=== PATIENT | male | born 1990 | race Caucasian/White ===

== ENCOUNTER 2017-05-02 13:34 | Inpatient (IN) | payer BC, OTHER ==
--- NOTE | 2017-05-02 13:44 | EDM.PDOC ---
ED HPI GENERAL MEDICAL PROBLEM - General Stated Complaint: SICK Time Seen by Provider: 05/02/17 13:38 Source of Information: Reports: Patient History Limitations: Reports: No Limitations - History of Present Illness INITIAL COMMENTS - FREE TEXT/NARRATIVE: 26 yo male presents with n/v/d since 4 am . states that he had some jerky yesterday with his father in law and now both have n/v/d. Denies other complaints. States that he has been having chills but fever is "subjective". Currently low grade fever upon arrival. C/o generalized aches to abdomen. Unable to tolerate liquids or solids. Onset: Today Onset Time: 04:00 Duration: Constant Location: Reports: Abdomen Quality: Reports: Ache Severity: Mild Improves with: Reports: None Worsens with: Reports: Eating Associated Symptoms: Reports: Loss of Appetite, Malaise, Nausea/Vomiting 0 Pain Score (Numeric/FACES): 0 - Related Data Allergies Allergy/AdvReac Type Severity Reaction Status Date / Time No Known Allergies Allergy Verified 10/14/13 03:58 Past Medical History - Past Health History Medical/Surgical History: Denies Medical/Surgical History Social & Family History - Tobacco Use Second Hand Smoke Exposure: No ED ROS GENERAL - Review of Systems Review Of Systems: ROS reveals no pertinent complaints other than HPI. ED EXAM, GI/ABD - Physical Exam Exam: See Below Exam Limited By: No Limitations General Appearance: Alert, WD/WN, No Apparent Distress Eyes: Bilateral: Normal Appearance, EOMI Throat/Mouth: Normal Inspection, Normal Lips, Normal Teeth, Normal Gums, Normal Oropharynx, Normal Voice, No Airway Compromise Head: Atraumatic, Normocephalic Neck: Normal Inspection, Supple, Non-Tender, Full Range of Motion Respiratory/Chest: No Respiratory Distress, Lungs Clear, Normal Breath Sounds, No Accessory Muscle Use, Chest Non-Tender Cardiovascular: Normal Peripheral Pulses, Regular Rate, Rhythm, No Edema, No Gallop, No JVD, No Murmur, No Rub GI/Abdominal Exam: Normal Bowel Sounds, Soft, No Organomegaly, No Distention, No Abnormal Bruit, No Mass, Pelvis Stable, Tender (mild diffusely) Neurological: Alert, Oriented, Normal Cognition, Normal Gait Skin Exam: Warm, Dry, Intact, Normal Color, No Rash Lymphatic: No Adenopathy Course - Vital Signs Last Recorded V/S: Last Vital Signs Temp 100.4 F 05/02/17 13:35 Pulse 97 05/02/17 13:35 Resp 16 05/02/17 13:35 BP 151/70 H 05/02/17 13:35 Pulse Ox 97 05/02/17 13:35 - Orders/Labs/Meds Orders: Active Orders 24 hr Category Date Time Status Oral Fluid Challenge [RC] ASDIRECTED Care 05/02/17 17:07 Active CULTURE BLOOD [BC] Stat Lab 05/02/17 17:22 Received CULTURE BLOOD [BC] Stat Lab 05/02/17 17:27 Received UA W/MICROSCOPIC [URIN] Stat Lab 05/02/17 13:48 Uncollected Blood Culture x2 Reflex Set [OM.PC] Stat Oth 05/02/17 16:59 Ordered Labs: Laboratory Tests 05/02/17 05/02/17 05/02/17 Range/Units 13:51 13:51 13:51 WBC 16.0 H (5.0-10.0) 10^3/uL RBC 4.95 (4.6-6.2) 10^6/uL Hgb 14.2 (14.0-18.0) g/dL Hct 40.2 (40.0-54.0) % MCV 81.2 (80-100) fL MCH 28.7 (27.0-34.0) pg MCHC 35.3 H (33.0-35.0) g/dL Plt Count 163 (150-450) 10^3/uL Neut % (Auto) 89.8 H (42.2-75.2) % Lymph % (Auto) 4.3 L (20.5-50.1) % [place] % (Auto) 5.6 (2-8) % Eos % (Auto) 0.1 L (1.0-3.0) % Baso % (Auto) 0.2 (0.0-1.0) % Sodium 139 (135-145) mmol/L Potassium 3.6 (3.6-5.0) mmol/L Chloride 103 (101-111) mmol/L Carbon Dioxide 23.0 (21.0-31.0) mmol/L Anion Gap 16.6 BUN 12 (7-18) mg/dL Creatinine 1.1 (0.6-1.3) mg/dL Est Cr Clr Drug Dosing TNP Estimated GFR (MDRD) > 60 BUN/Creatinine Ratio 10.90 Glucose 105 (74-105) mg/dL Lactic Acid 2.4 H (0.5-2.2) mmol/L Calcium 9.2 (8.4-10.2) mg/dl Total Bilirubin 1.2 H (0.2-1.0) mg/dL AST 36 (10-42) IU/L ALT 38 (10-60) IU/L Alkaline Phosphatase 71 (42-121) IU/L Total Protein 8.0 (6.7-8.2) g/dl Albumin 4.5 (3.2-5.5) g/dl Globulin 3.5 Albumin/Globulin Ratio 1.29 Amylase 71 (28-100) U/L Lipase 31 (22-51) U/L // Range/Units 17:22 WBC (5.0-10.0) 10^3/uL RBC (4.6-6.2) 10^6/uL Hgb (14.0-18.0) g/dL Hct (40.0-54.0) % MCV (80-100) fL MCH (27.0-34.0) pg MCHC (33.0-35.0) g/dL Plt Count (150-450) 10^3/uL Neut % (Auto) (42.2-75.2) % Lymph % (Auto) (20.5-50.1) % [place] % (Auto) (2-8) % Eos % (Auto) (1.0-3.0) % Baso % (Auto) (0.0-1.0) % Sodium (135-145) mmol/L Potassium (3.6-5.0) mmol/L Chloride (101-111) mmol/L Carbon Dioxide (21.0-31.0) mmol/L Anion Gap BUN (7-18) mg/dL Creatinine (0.6-1.3) mg/dL Est Cr Clr Drug Dosing Estimated GFR (MDRD) BUN/Creatinine Ratio Glucose (74-105) mg/dL Lactic Acid 2.1 (0.5-2.2) mmol/L Calcium (8.4-10.2) mg/dl Total Bilirubin (0.2-1.0) mg/dL AST (10-42) IU/L ALT (10-60) IU/L Alkaline Phosphatase (42-121) IU/L Total Protein (6.7-8.2) g/dl Albumin (3.2-5.5) g/dl Globulin Albumin/Globulin Ratio Amylase (28-100) U/L Lipase (22-51) U/L Meds: Medications Discontinued Medications Generic Name Dose Route Start Last Admin Trade Name Freq PRN Reason Stop Dose Admin Ciprofloxacin 500 mg 05/02/17 15:47 05/02/17 16:15 Ciprofloxacin Hcl PO 05/02/17 15:48 500 mg ONETIME ONE Administration Sodium Chloride 1,000 mls @ 999 mls/hr 05/02/17 13:50 05/02/17 14:12 Normal Saline IV 05/02/17 14:50 999 mls/hr .BOLUS ONE Administration Sodium Chloride 1,000 mls @ 999 mls/hr 05/02/17 14:25 05/02/17 15:24 Normal Saline IV 05/02/17 15:25 999 mls/hr .BOLUS ONE Administration Metronidazole 500 mg/ Premix 100 mls @ 100 mls/hr 05/02/17 15:47 05/02/17 16: 17 IV 05/02/17 16:46 100 mls/hr ONETIME ONE Administration Iopamidol 75 ml 05/02/17 14:19 05/02/17 15:06 Isovue-300 (61%) IVPUSH 05/02/17 14:20 75 ml ONETIME ONE Administration Ketorolac Tromethamine 30 mg 05/02/17 15:53 05/02/17 16:14 Toradol IVPUSH 05/02/17 15:54 30 mg ONETIME ONE Administration Ondansetron HCl 4 mg 05/02/17 13:50 05/02/17 14:13 Zofran IV 05/02/17 13:51 4 mg ONETIME ONE Administration Ondansetron HCl 4 mg 05/02/17 14:32 05/02/17 14:39 Zofran IV 05/02/17 14:33 4 mg ONETIME ONE Administration - Re-Assessments/Exams Free Text/Narrative Re-Assessment/Exam: 05/02/17 18:[address] Lundberg who is here to evaluate patient Departure - Departure Time of Disposition: 18:35 Disposition: Refer to Observation Condition: Good Clinical Impression: Gastroenteritis - Discharge Information Forms: ED Department Discharge - My Orders Last 24 Hours: My Active Orders 05/02/17 13:48 UA W/MICROSCOPIC [URIN] Stat 05/02/17 16:59 Blood Culture x2 Reflex Set [OM.PC] Stat 05/02/17 17:07 Oral Fluid Challenge [RC] ASDIRECTED 05/02/17 17:22 CULTURE BLOOD [BC] Stat 05/02/17 17:27 CULTURE BLOOD [BC] Stat - Assessment/Plan Last 24 Hours: My Active Orders 05/02/17 13:48 UA W/MICROSCOPIC [URIN] Stat 05/02/17 16:59 Blood Culture x2 Reflex Set [OM.PC] Stat 05/02/17 17:07 Oral Fluid Challenge [RC] ASDIRECTED 05/02/17 17:22 CULTURE BLOOD [BC] Stat 05/02/17 17:27 CULTURE BLOOD [BC] Stat
[2017-05-02] MEDS ORDERED: Ondansetron 4 MG/2 ML SDV IV ONE ×2 (13:50→14:32)
[2017-05-02] MEDS ORDERED: Sodium Chloride 0.9% 1,000 ML IV ONE ×2 (13:50→14:25)
[2017-05-02] MEDS ORDERED: Iopamidol 612 MG/ML 75 ML Bottle IVPUSH ONE (14:19)
[2017-05-02 14:27] LABS: CHLORIDE,CL 103 mmol/L (101-111); SODIUM,NA 139 mmol/L (135-145)
[2017-05-02] MEDS ORDERED: Ciprofloxacin 500 MG Tab PO ONE (15:47)
[2017-05-02] MEDS ORDERED: metroNIDAZOLE/Normal Saline 500 MG in Premix Bag 100 BAG IV ONE (15:47)
[2017-05-02] MEDS ORDERED: Ketorolac 30 MG/ML SDV IVPUSH ONE (15:53)
[2017-05-02] MEDS ORDERED: Ondansetron 4 MG Tab.DIS PO PRN (18:46)
[2017-05-02] MEDS ORDERED: Morphine 2 MG/ML Syringe IVPUSH PRN (18:46)
[2017-05-02] MEDS ORDERED: Zolpidem 5 MG Tab PO PRN (18:46)
[2017-05-02] MEDS ORDERED: Promethazine 25 MG/ML SDV IM PRN (18:46)
[2017-05-02] MEDS ORDERED: Sodium Chloride 0.9% 10 ML Syringe FLUSH PRN (18:46)
[2017-05-02] MEDS ORDERED: Metoclopramide 10 MG/2 ML SDV IVPUSH PRN (18:49)
--- NOTE | 2017-05-02 19:12 | PCM.HP ---
H&P History of Present Illness - General Date of Service: 05/02/17 Admit Problem/Dx: Nausea vomiting diarrhea Source of Information: EMS - History of Present Illness Initial Comments - Free Text/Narative: The patient is a 26 -year-old generally healthy gentleman with a history of prior bowel resection for volvulus. 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 The patient developed sudden onset of nausea, bilious vomiting, watery diarrhea. This started around 4 AM on 02 May. The patient is unable to keep food and fluid down, and a small amount of liquid makes the vomiting worse. There is associated fever, chills. Physical abdominal bloating but no significant distention noted by his . Prior to the development of the symptoms he ate homemade jerky. Appears that his [id number] who ate the same food was also complaining of diarrhea but he quickly improved. The patient came into the emergency room, was noted to have leukocytosis, fever. Consent for sepsis. Lactic acid was elevated but improved after IV fluid rehydration. CT was done in the emergency room that described retropancreatic inflammatory changes. The patient received a dose of ciprofloxacin and Flagyl in the emergency room along with IV fluids. 0 Pain Score (Numeric/FACES): 0 - Related Data Allergies/Adverse Reactions: Allergies Allergy/AdvReac Type Severity Reaction Status Date / Time No Known Allergies Allergy Verified 10/14/13 03:58 Past Medical History - Past Health History Medical/Surgical History: Denies Medical/Surgical History - Past Surgical History HEENT Surgical History: Reports: Adenoidectomy, Tonsillectomy GI Surgical History: Reports: Colon Other GI Surgeries/Procedures: Colon resection Social & Family History - Family History Family Medical History: Noncontributory - Tobacco Use Smoking Status *Q: Never Smoker Second Hand Smoke Exposure: No - Caffeine Use Caffeine Use: Reports: None - Recreational Drug Use Recreational Drug Use: No H&P Review of Systems - Review of Systems: Review Of Systems: See Below General: Reports: Fever, Chills, Weakness, Decreased Appetite Pulmonary: Denies: Shortness of Breath Cardiovascular: Denies: Chest Pain Gastrointestinal: Reports: Diarrhea, Nausea, Vomiting. Denies: Abdominal Pain, Hematemesis, Hematochezia, Melena Genitourinary: Denies: Dysuria Psychiatric: Denies: Confusion Exam - Exam Exam: See Below - Vital Signs Vital Signs: Last Vital Signs Temp 37.7 C 05/02/17 18:43 Pulse 92 05/02/17 18:43 Resp 16 05/02/17 18:43 BP 120/64 05/02/17 18:43 Pulse Ox 98 05/02/17 18:43 Weight: 95.254 kg - Exam General: Alert, Oriented Neck: Supple Lungs: Clear to Auscultation, Normal Respiratory Effort Cardiovascular: Regular Rate, Regular Rhythm GI/Abdominal Exam: Normal Bowel Sounds, Soft, Non-Tender, No Organomegaly, No Distention. No: Rigid, Rebound, Tender Back Exam: Normal Inspection Extremities: No Pedal Edema Skin: Warm Neuro Extensive - Mental Status: Alert, Oriented x3, Normal Mood/Affect - Patient Data Result Diagrams: 05/02/17 13:51 05/02/17 13:51 *Q Meaningful Use (ADM) - VTE *Q VTE Criteria *Q: - Stroke *Q Stroke Criteria *Q: - AMI *Q AMI Criteria *Q: - Problem List (1) Nausea and vomiting in adult SNOMED Code(s): 48777914 ICD Code: R11.2 - NAUSEA WITH VOMITING, UNSPECIFIED Status: Acute Current Visit: Yes (2) Gastroenteritis SNOMED Code(s): 88137815 ICD Code: K52.9 - NONINFECTIVE GASTROENTERITIS AND COLITIS, UNSPECIFIED Status: Acute Current Visit: Yes (3) Sepsis SNOMED Code(s): 68945800 ICD Code: A41.9 - SEPSIS, UNSPECIFIED ORGANISM Status: Acute Current Visit: Yes Problem List Initiated/Reviewed/Updated: Yes Orders Last 24hrs: Medication Orders Acetaminophen (Tylenol) 650 mg PO Q4H PRN PRN Reason: Pain (Mild 1-3)/fever Heparin Sodium (Porcine) (Heparin Sodium) 5,000 units SUBCUT Q8HR [facility] Potassium Chloride/Sodium Chloride (Normal Saline With 20 Meq Kcl) 1,000 mls @ 150 mls/hr IV ASDIRECTED [facility] Metronidazole 500 mg/ Premix 100 mls @ 100 mls/hr IV Q8H [facility] Metoclopramide HCl (Reglan) 10 mg IVPUSH .Q6 PRN PRN Reason: Nausea Morphine Sulfate (Morphine) 2 mg IVPUSH Q2H PRN PRN Reason: Pain (severe 7-10) Ondansetron HCl (Zofran Odt) 4 mg PO Q6H PRN PRN Reason: nausea, able to take PO Ondansetron HCl (Zofran) 4 mg IVPUSH Q6H PRN PRN Reason: Nausea/Vomiting Pantoprazole Sodium (Protonix Iv) 40 mg IVPUSH Q12H [facility] Promethazine HCl (Phenergan) 12.5 mg IM Q6H PRN PRN Reason: Nausea/Vomiting Sodium Chloride (Saline Flush) 10 ml FLUSH ASDIRECTED PRN PRN Reason: Keep Vein Open Zolpidem Tartrate (Ambien) 5 mg PO BEDTIME PRN PRN Reason: Sleep Assessment/Plan Comment:: The patient developed sudden onset of nausea, bilious vomiting, watery diarrhea. The patient is unable to keep food and fluid down, and a small amount of liquid makes the vomiting worse. There is associated fever, chills. Physical abdominal bloating but no significant distention noted by his . Prior to the development of the symptoms he ate homemade jerky. Appears that his [id number] who ate the same food was also complaining of diarrhea but he quickly improved. The patient came into the emergency room, was noted to have leukocytosis, fever. Concern for sepsis. Lactic acid was elevated but improved after IV fluid rehydration. CT was done in the emergency room that described retropancreatic inflammatory changes. The patient received a dose of ciprofloxacin and Flagyl in the emergency room along with IV fluids. #1 nausea, vomiting, diarrhea Differential diagnosis is wide. This might be food poisoning, viral infection. Possible C. difficile colitis due to healthcare exposure. Will repeat liver enzymes in the morning, lipase, electrolytes. Check stool for C. difficile For now treat the patient symptomatically with antiemetics, IV hydration. Clear liquid diet and will advance as tolerated. #2 sepsis with leukocytosis, fever, gastroenteritis Will treat with IV fluids Continue Flagyl #3 DVT prophylaxis will be with subcutaneous heparin
[2017-05-02] MEDS: Pantoprazole 40 MG Vial IVPUSH SCH (19:40)
[2017-05-02] MEDS: NS + KCl 20mEq/L 1,000 ML IV SCH (19:43)
[2017-05-02] MEDS: Ondansetron 4 MG/2 ML SDV IVPUSH PRN (19:52)
[2017-05-02] MEDS: Acetaminophen 325 MG Tab PO PRN ×2 (19:59→23:50)
[2017-05-02] MEDS: Heparin Sodium 5,000 Units/ML Vial SUBCUT SCH (22:32)
[2017-05-02] MEDS: metroNIDAZOLE/Normal Saline 500 MG in Premix Bag 100 BAG IV SCH (22:33)
[2017-05-03] MEDS: Ondansetron 4 MG/2 ML SDV IVPUSH PRN (03:02)
[2017-05-03] MEDS: NS + KCl 20mEq/L 1,000 ML IV SCH (03:51)
[2017-05-03] MEDS: Heparin Sodium 5,000 Units/ML Vial SUBCUT SCH ×2 (05:49→15:34)
[2017-05-03] MEDS: Pantoprazole 40 MG Vial IVPUSH SCH (06:24)
[2017-05-03] MEDS: metroNIDAZOLE/Normal Saline 500 MG in Premix Bag 100 BAG IV SCH ×2 (06:27→14:22)
[2017-05-03 06:54] LABS: CHLORIDE,CL 105 mmol/L (101-111); SODIUM,NA 137 mmol/L (135-145)
[2017-05-03] MEDS: Acetaminophen 325 MG Tab PO PRN ×2 (09:28→12:42)
[2017-05-03] MEDS ORDERED: Magnesium Sulfate/D5W 2 GM in Premix Bag 1 BAG IV ONE (09:29)
--- NOTE | 2017-05-03 09:45 | PCM.PN ---
- General Info Date of Service: 05/03/17 Admission Dx/Problem (Free Text): Nausea vomiting diarrhea Subjective Update: Overnight had high fevers. There is still nausea but much less associated vomiting. Less diarrhea. No associated abdominal pain Duration of illness is 24 hours Appears improving Continues to have diffuse muscle aches. No neurological symptoms Functional Status: Reports: Tolerating Diet (Was able to take clear liquid diet) , Urinating - Review of Systems General: Reports: Fever, Weakness, Malaise, Chills Pulmonary: Denies: Shortness of Breath Cardiovascular: Denies: Chest Pain Gastrointestinal: Reports: Diarrhea, Nausea, Vomiting. Denies: Abdominal Pain Neurological: Denies: Confusion - Patient Data Vitals - Most Recent: Last Vital Signs Temp 38.9 C H 05/03/17 03:00 Pulse 93 05/03/17 03:00 Resp 20 05/03/17 03:00 BP 127/73 05/03/17 03:00 Pulse Ox 97 05/03/17 03:00 Weight - Most Recent: 95.254 kg I&O - Last 24 Hours: Intake & Output 05/02/17 05/03/17 05/03/17 22:59 06:59 14:59 Intake Total 50 1905 Output Total 500 700 Balance -450 1205 Lab Results Last 24 Hours: Laboratory Results - last 24 hr 05/03/17 05/03/17 Range/Units 06:20 06:20 WBC 12.9 H (5.0-10.0) 10^3/uL RBC 4.35 L (4.6-6.2) 10^6/uL Hgb 12.4 L (14.0-18.0) g/dL Hct 36.3 L (40.0-54.0) % MCV 83.4 (80-100) fL MCH 28.5 (27.0-34.0) pg MCHC 34.2 (33.0-35.0) g/dL Plt Count 135 L (150-450) 10^3/uL Neut % (Auto) 85.8 H (42.2-75.2) % Lymph % (Auto) 7.4 L (20.5-50.1) % [place] % (Auto) 6.6 (2-8) % Eos % (Auto) 0.1 L (1.0-3.0) % Baso % (Auto) 0.1 (0.0-1.0) % Sodium 137 (135-145) mmol/L Potassium 3.4 L (3.6-5.0) mmol/L Chloride 105 (101-111) mmol/L Carbon Dioxide 22.0 (21.0-31.0) mmol/L Anion Gap 13.4 BUN 14 (7-18) mg/dL Creatinine 1.1 (0.6-1.3) mg/dL Est Cr Clr Drug Dosing 99.98 mL/min Estimated GFR (MDRD) > 60 Glucose 126 H (74-105) mg/dL Calcium 8.1 L (8.4-10.2) mg/dl Phosphorus 1.2 L (2.5-4.6) mg/dL Magnesium 1.3 L (1.8-2.5) mg/dL Total Bilirubin 1.4 H (0.2-1.0) mg/dL Direct Bilirubin 0.3 H (0.0-0.2) mg/dL Indirect Bilirubin 1.1 AST 31 (10-42) IU/L ALT 29 (10-60) IU/L Alkaline Phosphatase 54 (42-121) IU/L Total Protein 6.6 L (6.7-8.2) g/dl Albumin 3.7 (3.2-5.5) g/dl Globulin 2.9 Albumin/Globulin Ratio 1.28 Lipase 35 (22-51) U/L Med Orders - Current: Current Medications Acetaminophen (Tylenol) 650 mg PO Q4H PRN PRN Reason: Pain (Mild 1-3)/fever Last Admin: 05/02/17 23:50 Dose: 650 mg Heparin Sodium (Porcine) (Heparin Sodium) 5,000 units SUBCUT Q8HR [facility] Last Admin: 05/03/17 05:49 Dose: 5,000 units Potassium Chloride/Sodium Chloride (Normal Saline With 20 Meq Kcl) 1,000 mls @ 150 mls/hr IV ASDIRECTED [facility] Last Admin: 05/03/17 03:51 Dose: 150 mls/hr Metronidazole 500 mg/ Premix 100 mls @ 100 mls/hr IV Q8H [facility] Last Admin: 05/03/17 06:27 Dose: 100 mls/hr Magnesium Sulfate/Dextrose 2 (gm/ Premix) 200 mls @ 100 mls/hr IV ONETIME ONE Stop: 05/03/17 11:28 Ketorolac Tromethamine (Toradol) 30 mg IVPUSH Q6H PRN PRN Reason: fever, pain Stop: 05/08/17 09:30 Metoclopramide HCl (Reglan) 10 mg IVPUSH .Q6 PRN PRN Reason: Nausea Last Admin: 05/03/17 03:59 Dose: 10 mg Morphine Sulfate (Morphine) 2 mg IVPUSH Q2H PRN PRN Reason: Pain (severe 7-10) Last Admin: 05/03/17 03:11 Dose: 2 mg Ondansetron HCl (Zofran Odt) 4 mg PO Q6H PRN PRN Reason: nausea, able to take PO Ondansetron HCl (Zofran) 4 mg IVPUSH Q6H PRN PRN Reason: Nausea/Vomiting Last Admin: 05/03/17 03:02 Dose: 4 mg Pantoprazole Sodium (Protonix Iv) 40 mg IVPUSH Q12H [facility] Last Admin: 05/03/17 06:24 Dose: 40 mg Promethazine HCl (Phenergan) 12.5 mg IM Q6H PRN PRN Reason: Nausea/Vomiting Sodium Chloride (Saline Flush) 10 ml FLUSH ASDIRECTED PRN PRN Reason: Keep Vein Open Sodium Phosphate (Neutra-Phos) 250 mg PO QID [facility] Stop: 05/03/17 21:01 Zolpidem Tartrate (Ambien) 5 mg PO BEDTIME PRN PRN Reason: Sleep Discontinued Medications Ciprofloxacin (Ciprofloxacin Hcl) 500 mg PO ONETIME ONE Stop: 05/02/17 15:48 Last Admin: 05/02/17 16:15 Dose: 500 mg Sodium Chloride (Normal Saline) 1,000 mls @ 999 mls/hr IV .BOLUS ONE Stop: 05/02/17 14:50 Last Admin: 05/02/17 14:12 Dose: 999 mls/hr Sodium Chloride (Normal Saline) 1,000 mls @ 999 mls/hr IV .BOLUS ONE Stop: 05/02/17 15:25 Last Admin: 05/02/17 15:24 Dose: 999 mls/hr Metronidazole 500 mg/ Premix 100 mls @ 100 mls/hr IV ONETIME ONE Stop: 05/02/17 16:46 Last Admin: 05/02/17 16:17 Dose: 100 mls/hr Iopamidol (Isovue-300 (61%)) 75 ml IVPUSH ONETIME ONE Stop: 05/02/17 14:20 Last Admin: 05/02/17 15:06 Dose: 75 ml Ketorolac Tromethamine (Toradol) 30 mg IVPUSH ONETIME ONE Stop: 05/02/17 15:54 Last Admin: 05/02/17 16:14 Dose: 30 mg Ondansetron HCl (Zofran) 4 mg IV ONETIME ONE Stop: 05/02/17 13:51 Last Admin: 05/02/17 14:13 Dose: 4 mg Ondansetron HCl (Zofran) 4 mg IV ONETIME ONE Stop: 05/02/17 14:33 Last Admin: 05/02/17 14:39 Dose: 4 mg - Exam General: Alert, Oriented Neck: Supple Lungs: Clear to Auscultation, Normal Respiratory Effort Cardiovascular: Regular Rate, Regular Rhythm, Tachycardia GI/Abdominal Exam: Normal Bowel Sounds, Soft, Non-Tender Extremities: No Pedal Edema - Problem List & Annotations (1) Nausea and vomiting in adult SNOMED Code(s): 93999935 Code(s): R11.2 - NAUSEA WITH VOMITING, UNSPECIFIED Status: Acute Current Visit: Yes (2) Gastroenteritis SNOMED Code(s): 95175623 Code(s): K52.9 - NONINFECTIVE GASTROENTERITIS AND COLITIS, UNSPECIFIED Status: Acute Current Visit: Yes (3) Sepsis SNOMED Code(s): 90137125 Code(s): A41.9 - SEPSIS, UNSPECIFIED ORGANISM Status: Acute Current Visit : Yes - Problem List Review Problem List Initiated/Reviewed/Updated: Yes - My Orders Last 24 Hours: My Active Orders 05/03/17 09:27 Admission Status [Patient Status] [ADT] Routine 05/03/17 09:29 Magnesium Sulfate/D5W [Magnesium 1 GM in D5W 100 ML] 2 gm Premix Bag 1 bag IV ONETIME 05/03/17 09:30 Ketorolac [Toradol] 30 mg IVPUSH Q6H PRN Phosphorus #1 [Neutra-Phos] 250 mg PO QID - Plan Plan:: The patient developed sudden onset of nausea, bilious vomiting, watery diarrhea. The patient was unable to keep food and fluid down, and even a small amount of liquid was making the vomiting worse. There is associated fever, chills. #1 nausea, vomiting, diarrhea this is associated with high fever Differential diagnosis is wide. This might be food poisoning, viral infection. Possible C. difficile colitis due to healthcare exposure. Stable liver enzymes, lipase, Check stool for C. difficile We will replace potassium, magnesium, phosphorus. Recheck in the morning For now treat the patient symptomatically with antiemetics, IV hydration. Advance diet as tolerated. Use Toradol for fever and pain #2 sepsis with leukocytosis, fever, gastroenteritis Will treat with IV fluids Continue Flagyl #3 DVT prophylaxis will be with subcutaneous heparin
[2017-05-03] MEDS ORDERED: Potassium Chloride 10 MEQ Tab.ER PO ONE (09:46)
[2017-05-03] MEDS: Ketorolac 30 MG/ML SDV IVPUSH PRN ×2 (10:14→15:35)
[2017-05-03] MEDS: Phosphorus #1 250 MG Tab PO SCH ×3 (10:14→15:34)
[2017-05-03 11:33] VITALS: BP 109/55
--- NOTE | 2017-05-03 15:08 | PCM.DCSUM1 ---
Discharge Summary - Hospital Course Free Text/Narrative:: The patient is a 26-year-old gentleman who presented with nausea vomiting diarrhea The patient was noted to have high fever leukocytosis mildly elevated lactic acid. The patient workup included blood culture and C. difficile test from stool that is still pending. The patient was treated symptomatically with the IV fluids and antiemetics. He was started on ciprofloxacin and Flagyl. After the admission he continued to have high fever chills. Subsequently symptoms improved was able to keep food down, eat and drink. Had no further diarrhea Fever resolved He would like to be discharged The patient will be discharged now and will return if he has return of the symptoms. - Discharge Data Discharge Date: 05/03/17 Discharge Disposition: Home, Self-Care 01 Condition: Stable - Discharge Diagnosis/Problem(s) (1) Nausea and vomiting in adult SNOMED Code(s): 44961548 ICD Code: R11.2 - NAUSEA WITH VOMITING, UNSPECIFIED Status: Acute Current Visit: Yes (2) Gastroenteritis SNOMED Code(s): 39441225 ICD Code: K52.9 - NONINFECTIVE GASTROENTERITIS AND COLITIS, UNSPECIFIED Status: Acute Current Visit: Yes (3) Sepsis SNOMED Code(s): 77886696 ICD Code: A41.9 - SEPSIS, UNSPECIFIED ORGANISM Status: Acute Current Visit: Yes - Patient Instructions Diet: Usual Diet as Tolerated Activity: As Tolerated - Discharge Plan Prescriptions/Med Rec: Ketorolac [Toradol] 10 mg PO Q6H #10 tablet metroNIDAZOLE [Flagyl] 500 mg PO Q8H #15 tablet Ondansetron [Zofran ODT] 4 mg PO Q6H PRN #15 tab.dis PRN Reason: Nausea Pantoprazole Sodium [Protonix] 20 mg PO DAILY #15 tablet. Home Medications: Home Meds Ketorolac [Toradol] 10 mg PO Q6H #10 tablet 05/03/17 [Rx] Ondansetron [Zofran ODT] 4 mg PO Q6H PRN #15 tab.dis 05/03/17 [Rx] Pantoprazole Sodium [Protonix] 20 mg PO DAILY #15 tablet. 05/03/17 [Rx] metroNIDAZOLE [Flagyl] 500 mg PO Q8H #15 tablet 05/03/17 [Rx] - General Info Date of Service: 05/03/17 - Review of Systems General: Denies: Fever Pulmonary: Denies: Shortness of Breath Cardiovascular: Denies: Chest Pain Gastrointestinal: Denies: Abdominal Pain, Diarrhea, Nausea, Vomiting - Patient Data Vitals - Most Recent: Last Vital Signs Temp 35.9 C 05/03/17 11:00 Pulse 87 05/03/17 11:00 Resp 20 05/03/17 11:00 BP 109/55 L 05/03/17 11:00 Pulse Ox 97 05/03/17 11:00 Weight - Most Recent: 95.254 kg I&O - Last 24 hours: Intake & Output 05/03/17 05/03/17 05/03/17 06:59 14:59 22:59 Intake Total 200 Balance 200 Med Orders - Current: Current Medications Acetaminophen (Tylenol) 650 mg PO Q4H PRN PRN Reason: Pain (Mild 1-3)/fever Last Admin: 05/03/17 12:42 Dose: 650 mg Heparin Sodium (Porcine) (Heparin Sodium) 5,000 units SUBCUT Q8HR [facility] Last Admin: 05/03/17 05:49 Dose: 5,000 units Potassium Chloride/Sodium Chloride (Normal Saline With 20 Meq Kcl) 1,000 mls @ 150 mls/hr IV ASDIRECTED [facility] Last Admin: 05/03/17 03:51 Dose: 150 mls/hr Metronidazole 500 mg/ Premix 100 mls @ 100 mls/hr IV Q8H [facility] Last Admin: 05/03/17 14:22 Dose: 100 mls/hr Ketorolac Tromethamine (Toradol) 30 mg IVPUSH Q6H PRN PRN Reason: fever, pain Stop: 05/08/17 09:30 Last Admin: 05/03/17 10:14 Dose: 30 mg Metoclopramide HCl (Reglan) 10 mg IVPUSH .Q6 PRN PRN Reason: Nausea Last Admin: 05/03/17 03:59 Dose: 10 mg Morphine Sulfate (Morphine) 2 mg IVPUSH Q2H PRN PRN Reason: Pain (severe 7-10) Last Admin: 05/03/17 03:11 Dose: 2 mg Ondansetron HCl (Zofran Odt) 4 mg PO Q6H PRN PRN Reason: nausea, able to take PO Ondansetron HCl (Zofran) 4 mg IVPUSH Q6H PRN PRN Reason: Nausea/Vomiting Last Admin: 05/03/17 03:02 Dose: 4 mg Pantoprazole Sodium (Protonix Iv) 40 mg IVPUSH Q12H [facility] Last Admin: 05/03/17 06:24 Dose: 40 mg Promethazine HCl (Phenergan) 12.5 mg IM Q6H PRN PRN Reason: Nausea/Vomiting Sodium Chloride (Saline Flush) 10 ml FLUSH ASDIRECTED PRN PRN Reason: Keep Vein Open Sodium Phosphate (Neutra-Phos) 250 mg PO QID [facility] Stop: 05/03/17 21:01 Last Admin: 05/03/17 12:42 Dose: 250 mg Zolpidem Tartrate (Ambien) 5 mg PO BEDTIME PRN PRN Reason: Sleep Discontinued Medications Ciprofloxacin (Ciprofloxacin Hcl) 500 mg PO ONETIME ONE Stop: 05/02/17 15:48 Last Admin: 05/02/17 16:15 Dose: 500 mg Sodium Chloride (Normal Saline) 1,000 mls @ 999 mls/hr IV .BOLUS ONE Stop: 05/02/17 14:50 Last Admin: 05/02/17 14:12 Dose: 999 mls/hr Sodium Chloride (Normal Saline) 1,000 mls @ 999 mls/hr IV .BOLUS ONE Stop: 05/02/17 15:25 Last Admin: 05/02/17 15:24 Dose: 999 mls/hr Metronidazole 500 mg/ Premix 100 mls @ 100 mls/hr IV ONETIME ONE Stop: 05/02/17 16:46 Last Admin: 05/02/17 16:17 Dose: 100 mls/hr Magnesium Sulfate/Dextrose 2 (gm/ Premix) 200 mls @ 100 mls/hr IV ONETIME ONE Stop: 05/03/17 11:28 Last Admin: 05/03/17 10:13 Dose: 100 mls/hr Iopamidol (Isovue-300 (61%)) 75 ml IVPUSH ONETIME ONE Stop: 05/02/17 14:20 Last Admin: 05/02/17 15:06 Dose: 75 ml Ketorolac Tromethamine (Toradol) 30 mg IVPUSH ONETIME ONE Stop: 05/02/17 15:54 Last Admin: 05/02/17 16:14 Dose: 30 mg Ondansetron HCl (Zofran) 4 mg IV ONETIME ONE Stop: 05/02/17 13:51 Last Admin: 05/02/17 14:13 Dose: 4 mg Ondansetron HCl (Zofran) 4 mg IV ONETIME ONE Stop: 05/02/17 14:33 Last Admin: 05/02/17 14:39 Dose: 4 mg Potassium Chloride (Klor-Con 10) 20 meq PO ONETIME ONE Stop: 05/03/17 09:47 Last Admin: 05/03/17 10:14 Dose: 20 meq - Exam General: Reports: Alert, Oriented Neck: Reports: Supple Psy/Mental Status: Reports: Alert, Normal Affect, Normal Mood *Q Meaningful Use (DIS) - VTE *Q VTE Criteria *Q: - Stroke *Q Stroke Criteria *Q: - AMI *Q AMI Criteria *Q:
== END 2017-05-03 16:00 | disposition home or self-care (01) | DRG 720 ==
LOC: DL.ED 13:34 → DL.MS 19:06 → OBSVTOIN 05-03 09:27
PROVIDERS: ADMIT Internal Medicine; ATTEND Internal Medicine
DX: A41.9 Sepsis, unspecified organism (principal); R11.2 Nausea with vomiting, unspecified; R50.9 Fever, unspecified; D72.829 Elevated white blood cell count, unspecified; K52.9 Noninfective gastroenteritis and colitis, unspecified; A04.7 Enterocolitis due to Clostridium difficile
CPT/HCPCS: 36415; 71010; 74177; 80048; 80053; 80076; 82150; 83605; 83690; 83735; 84100; 85025; 87040; 96361; 96365; 96366; 96372; 96375; 96376; 99285; A9270-GY; C9113; G0378; J1644; J1885; J2270; J2405; J2765; J3475; J3480; J7030; Q9967